=== PATIENT | male | born 1990 | race African-American/Black ===

== ENCOUNTER 2016-06-06 12:51 | Emergency (ER) | payer MEDICAID ==
[~2016-06-06] VITALS: Ht 170.2 cm; Wt 81.3 kg
[2016-06-06] MEDS ORDERED: ONDANSETRON 4MG ODT PO ONE (13:45)
[2016-06-06] MEDS ORDERED: ONDANSETRON HCL 4MG/2ML VIAL IV STA (14:42)
[2016-06-06] MEDS ORDERED: SODIUM CHLORIDE 0.9% 1,000 ML IV ONE (14:42)
[2016-06-06 16:55] VITALS: BP 130/88
== END 2016-06-06 17:23 | disposition home or self-care (01) ==
LOC: ER 12:55
DX: K04.7 Periapical abscess without sinus (principal); F12.10 Cannabis abuse, uncomplicated; A08.4 Viral intestinal infection, unspecified
CPT/HCPCS: 96361; 96374; 99285; J2405; Q0162; J7030